=== PATIENT | female | born 1980 | race Caucasian/White ===

== ENCOUNTER 2018-08-07 15:07 | Inpatient (IN) | payer OTHER ==
[~2018-08-07] VITALS: Ht 170.2 cm; Wt 77.6 kg
[~2018-08-07 15:07] MED LIST: CELEXA20 MG PO; CRESTOR10 MG PO; SYNTHROID88 MCG PO; TRAMADOL 50 MG50 MG PO
[2018-08-07 15:18] VITALS: BP 122/66
[2018-08-07] MEDS ORDERED: MAGOX 400400 MG PO (15:22)
[2018-08-07] MEDS ORDERED: SPIRONOLACTONE50 MG PO (15:22)
[2018-08-07] MEDS ORDERED: CYCLOBENZAPRINE5 MG PO (15:22)
[2018-08-07] MEDS ORDERED: ASPIR 8181 MG PO (15:22)
[2018-08-07] MEDS ORDERED: RAPATHA (15:23)
[2018-08-07 15:42] LABS: ABSOLUTE BASOPHILS 0.1 thou/uL (0.0-0.2); ABSOLUTE EOSINOPHILS 0.2 thou/uL (0.0-0.7); ABSOLUTE LYMPHOCYTES 1.8 thou/uL (0.8-5.3); ABSOLUTE MONOCYTES 0.5 thou/uL (0.0-1.2); ABSOLUTE NEUTROPHILS 5.8 thou/uL (1.6-8.1); BASOPHILS 0.6 %; EOSINOPHILS 2.2 %; HEMATOCRIT 42.6 % (37.0-47.0); HEMOGLOBIN 14.7 gm/dL (12.0-15.0); LYMPHOCYTES 21.4 %; MCHC 34.5 g/dL (28.0-37.0); MCV 98.4 fL (80.0-100.0); MONOCYTES 6.5 %; MPV 6.9 fl. (7.2-11.1); NUCLEATED RBCS 0 /100WBC; PLATELET COUNT* 286 thou/uL (150-400); POLYS 69.3 %; RBC 4.33 mil/uL (4.20-5.00); WBC 8.3 thou/uL (4.0-11.0)
[2018-08-07 15:43] LABS: URINE BILIRUBIN NEGATIVE (Negative); URINE BLOOD 3+ (Negative); URINE CLARITY CLEAR; URINE COLOR YELLOW; URINE GLUCOSE-RANDOM NEGATIVE (Negative); URINE KETONES NEGATIVE (Negative); URINE LEUKOCYTES-REFLEX 1+ (Negative); URINE NITRITE-REFLEX NEGATIVE (Negative); URINE PROTEIN NEGATIVE (Negative); URINE SPECIFIC GRAVITY 1.025 (1.005-1.030); URINE UROBILINOGEN 0.2 E.U./dl (0.2-1.0)
[2018-08-07 15:47] LABS: CALCIUM 8.6 mg/dL (8.5-10.1); CREATININE 1.1 mg/dL (0.6-1.3); POTASSIUM 4.1 mmol/L (3.5-5.1)
[2018-08-07 15:52] LABS: SQUAMOUS >10 Many /LPF (0-3)
[2018-08-07 15:53] LABS: BACTERIA-REFLEX None Seen /HPF (None Seen); CASTS None Seen /LPF (None Seen); CRYSTALS None Seen /LPF (None Seen); MUCUS 0-3 Light strn/LPF (None Seen); URINE RBC 3-10 Few /HPF (0-2); URINE WBC-REFLEX None Seen /HPF (0-5)
[2018-08-07 16:01] LABS: TOTAL BILIRUBIN 0.2 mg/dL (<0.1-1.0); TOTAL PROTEIN 7.2 g/dL (6.4-8.2)
--- NOTE | 2018-08-07 16:49 | NUR ---
HOSPITALIST IN TO SEE PT.
[2018-08-07 17:35] VITALS: BP 135/69
[2018-08-07 17:40] VITALS: BP 116/66
--- NOTE | 2018-08-07 19:51 | NUR ---
PATIENT ARRIVED FROM ER AT 1740. PATIENT SETTLED TO ROOM. HISTORY, ASSESSMENT AND VITALS COMPLETED AND DOCUMENTED. PATIENT HAS COMPLAINTS OF GENERALIZED PAIN AND HEADACHE, ORDERS FOR TRAMADOL RECEIVED AND GIVEN WITH MODERATE RELIEF. PATIENT IS UP AD CAR IN ROOM. PATIENT DENIES ANY NEEDS AT THIS TIME. CALL LIGHT WITHIN REACH. WILL CONTINUE TO MONITOR.
[2018-08-07 20:30] VITALS: BP 128/71
--- NOTE | 2018-08-08 08:04 | NUR ---
PATIENT HAS BEEN RESTLESS DURING THE NIGHT. PAIN MEDICATION GIVEN ORDERED AND CHARTED. VSS ON RA. PATIENT IS UP AD-CAR AND STEADY ON FEET. IV IN RIGHT FOREARM-NS @ 150ML/HR. PATIENT INSTRUCTED TO USE CALL LIGHT WHEN NEEDING ASSISTANCE. HOURLY ROUNDS MADE. WILL CONTINUE WITH PLAN OF CARE AND NURSING TO MONITOR.
[2018-08-08 08:45] VITALS: BP 109/84
[2018-08-08 16:00] VITALS: BP 120/74
--- NOTE | 2018-08-08 19:46 | NUR ---
Assumed care of pt at 0700, pt resting in bed throughout shift. Has c/o muscle pain, PRN medication given as ordered. Fluids infusing at 250ml/HR per orders.
[2018-08-08 20:00] VITALS: BP 110/67
[2018-08-09] VITALS: BP 109/58
--- NOTE | 2018-08-09 04:47 | NUR ---
ASSUMED PT CARE AT 1930. ASSESSMENT COMPLETED CHARTED. PT RESTING IN BED MOST OF THE NIGHT. C/O HEADACHE AND SORENESS WHICH WAS PARTIALLY RELIEVED BY PRN PAIN MEDICATION. WILL CONTINUE TO MONITOR.
[2018-08-09 09:40] VITALS: BP 153/84
[2018-08-09] MEDS ORDERED: TRAMADOL 50 MG50 MG PO (10:26)
[2018-08-09 10:34] VITALS: BP 153/84
--- NOTE | 2018-08-09 10:45 | NUR ---
PT GIVEN DISHCARGE INFORMATION AT THIS TIME. PRESCRIPTIONS GIVEN WELL CARE NOTES. IV REMOVED. PT DENIED ANY FURTHER QESTIONS OR CONCERNS A THIS TIME. HOURLY RUNDING COMPLETED. PT LEFT WITH SPOUSE TO HOME CARE.
[2018-08-09 10:48] VITALS: BP 153/84
== END 2018-08-09 10:48 | disposition home or self-care (01) | DRG 558 ==
LOC: M.ERS 15:07 → M.TBA-ER 16:36 → M.3W 16:36
PROVIDERS: Nurse Practitioner Family
DX: M62.82 Rhabdomyolysis (principal); E03.9 Hypothyroidism, unspecified; E78.00 Pure hypercholesterolemia, unspecified; B37.3 Candidiasis of vulva and vagina; Z90.49 Acquired absence of other specified parts of digestive tract; Z98.891 History of uterine scar from previous surgery; Z79.82 Long term (current) use of aspirin; Z79.899 Other long term (current) drug therapy; Z91.041 Radiographic dye allergy status; Z91.013 Allergy to seafood